=== PATIENT | female | born 1970 | race African-American/Black ===

== ENCOUNTER 2018-12-12 09:56 | Inpatient (IN) | payer OTHER ==
[2018-12-12 10:38] VITALS: BMI 19.3
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
[2018-12-12] MEDS ORDERED: MENTHOL/PHENOL 1 EACH UD MM PRN (13:17)
[2018-12-12] MEDS ORDERED: MAG HYDROX/AL HYDROX/SIMETH 30 ML UNIT-DOSE CUP PO PRN (13:17)
[2018-12-12] MEDS ORDERED: MAGNESIUM CITRATE 300 ML BOTTLE PO PRN (13:17)
[2018-12-12] MEDS ORDERED: hydrOXYzine PAMOATE 50 MG CAPSULE (FP) PO PRN (13:17)
[2018-12-12] MEDS ORDERED: LOPERAMIDE HCL 2 MG CAPSULE PO PRN (13:17)
[2018-12-12] MEDS ORDERED: P-EPHED 60MG/TRIPROLIDI 2.5MG TABLET PO PRN (13:17)
[2018-12-12] MEDS ORDERED: ACETAMINOPHEN 325 MG TABLET (FP) PO PRN (13:17)
[2018-12-12] MEDS ORDERED: MAGNESIUM HYDROX 2400MG/30ML ORAL SUSPENSION 30 ML CUP PO PRN (13:17)
[2018-12-12] MEDS ORDERED: guaiFENesin 200 MG/10 ML 10 ML UNIT-DOSE CUPS PO PRN (13:17)
[2018-12-12 14:52] LABS: HEMATOCRIT 42.7 % (32.4-45.2); HEMOGLOBIN 13.9 GM/dL (10.7-15.3); MCH 32.2 pg (25.7-33.7); MCHC 32.6 g/dl (32.0-36.0); MEAN CELL VOLUME 98.8 fl (80-96); MEAN PLT VOLUME 9.4 fl (7.5-11.1); PLATELET COUNT 219 K/MM3 (134-434); RBC 4.32 M/mm3 (3.60-5.2); RDW 14.3 % (11.6-15.6); WHITE BLOOD COUNT 3.6 K/mm3 (4.0-10.0)
[2018-12-12 15:05] LABS: ALBUMIN 3.8 g/dl (3.4-5.0); BILIRUBIN,TOTAL 0.2 mg/dL (0.2-1); CREATININE 0.8 mg/dL (0.55-1.3); POTASSIUM 4.8 mmol/L (3.5-5.1); TOT PROT 7.4 g/dl (6.4-8.2)
[2018-12-12] MEDS ORDERED: TUBERCULIN PPD 5 TU/0.1ML VIAL ID ONE ×2 (15:18→15:33)
[2018-12-12 19:16] LABS: EPI CELLS 7.5 /HPF (0-5/HPF); HYALINE CASTS 34 /lpf (0-8); PH,URINE 5.5 (5.0-8.0); URINE APPEARANCE CLOUDY; URINE BACTERIA 1045.7 /hpf (NEGATIVE); URINE BILIRUBIN NEGATIVE (NEGATIVE); URINE COLOR YELLOW; URINE GLUCOSE (UA) NEGATIVE (NEGATIVE); URINE KETONE NEGATIVE (NEGATIVE); URINE LEUK ESTERASE 3+ (NEGATIVE); URINE NITRITE NEGATIVE (NEGATIVE); URINE PROTEIN NEGATIVE (NEGATIVE); URINE RBC 2 /hpf (0-4); URINE UROBILINOGEN 0.2 mg/dL (0.2-1.0); URINE WBC 95 /hpf (0-5)
[2018-12-12] MEDS: MELATONIN 5 MG TABLETS PO PRN (21:39)
[2018-12-12] MEDS: THIAMINE HCL 100 MG TABLET (FP) PO SCH (21:39)
[2018-12-12 22:06] LABS: URINE CRYSTALS FEW CALCIUM OXALATES /hpf
[2018-12-13] MEDS: IBUPROFEN 400 MG TABLET (FP) PO PRN (07:17)
[2018-12-13] MEDS: PRENATAL VITAMINS W/ FOLIC ACID TABLET (FP) PO SCH (09:29)
--- NOTE | 2018-12-13 09:29 | PN ---
S Progress Note Note: 48 years old female admitted on 12/12/18 for alcohol rehab long history of hiv treated with truvada and isantress, gerd prefers not to have antiacide medication requests motrin for pain regular dietary ordered ensure placed
[2018-12-13] MEDS ORDERED: cloNIDine HCL 0.1 MG TABLET PO PRN (09:35)
[2018-12-13] MEDS: ENALAPRIL MALEATE 5 MG TABLET (FP) PO SCH (10:00)
[2018-12-13] MEDS: THIAMINE HCL 100 MG TABLET (FP) PO SCH (21:33)
[2018-12-13] MEDS: MELATONIN 5 MG TABLETS PO PRN (21:34)
[2018-12-14] MEDS: IBUPROFEN 400 MG TABLET (FP) PO PRN ×2 (08:02→17:10)
[2018-12-14] MEDS ORDERED: PT OWN MED DRAWER 7, Y5N ONE (08:54)
[2018-12-14] MEDS: PRENATAL VITAMINS W/ FOLIC ACID TABLET (FP) PO SCH (10:09)
[2018-12-14] MEDS: ENALAPRIL MALEATE 5 MG TABLET (FP) PO SCH (10:09)
[2018-12-14] MEDS: THIAMINE HCL 100 MG TABLET (FP) PO SCH (21:34)
[2018-12-15] MEDS: IBUPROFEN 400 MG TABLET (FP) PO PRN (06:37)
[2018-12-15] MEDS ORDERED: PT OWN MED DRAWER 7, Y5N ONE (08:49)
[2018-12-15] MEDS: PRENATAL VITAMINS W/ FOLIC ACID TABLET (FP) PO SCH (10:13)
[2018-12-15] MEDS: ENALAPRIL MALEATE 5 MG TABLET (FP) PO SCH (10:13)
[2018-12-15] MEDS: THIAMINE HCL 100 MG TABLET (FP) PO SCH (21:17)
[2018-12-15] MEDS: MELATONIN 5 MG TABLETS PO PRN (21:18)
[2018-12-16] MEDS: IBUPROFEN 400 MG TABLET (FP) PO PRN (06:32)
[2018-12-16] MEDS: PRENATAL VITAMINS W/ FOLIC ACID TABLET (FP) PO SCH (09:24)
[2018-12-16] MEDS: ENALAPRIL MALEATE 5 MG TABLET (FP) PO SCH (09:24)
[2018-12-16] MEDS: THIAMINE HCL 100 MG TABLET (FP) PO SCH (21:14)
[2018-12-17] MEDS: IBUPROFEN 400 MG TABLET (FP) PO PRN ×2 (10:05→20:02)
[2018-12-17] MEDS: PRENATAL VITAMINS W/ FOLIC ACID TABLET (FP) PO SCH (10:05)
[2018-12-17] MEDS: ENALAPRIL MALEATE 5 MG TABLET (FP) PO SCH (10:57)
[2018-12-17] MEDS: THIAMINE HCL 100 MG TABLET (FP) PO SCH (21:22)
[2018-12-17] MEDS: MELATONIN 5 MG TABLETS PO PRN (21:22)
[2018-12-18] MEDS: IBUPROFEN 400 MG TABLET (FP) PO PRN (09:33)
[2018-12-18] MEDS: ENALAPRIL MALEATE 5 MG TABLET (FP) PO SCH (09:34)
[2018-12-18] MEDS: PRENATAL VITAMINS W/ FOLIC ACID TABLET (FP) PO SCH (09:34)
[2018-12-18] MEDS: THIAMINE HCL 100 MG TABLET (FP) PO SCH (21:34)
[2018-12-18] MEDS: MELATONIN 5 MG TABLETS PO PRN (21:34)
[2018-12-19] MEDS: PRENATAL VITAMINS W/ FOLIC ACID TABLET (FP) PO SCH (10:20)
[2018-12-19] MEDS: ENALAPRIL MALEATE 5 MG TABLET (FP) PO SCH (10:21)
[2018-12-19] MEDS: IBUPROFEN 400 MG TABLET (FP) PO PRN (10:21)
[2018-12-19] MEDS: THIAMINE HCL 100 MG TABLET (FP) PO SCH (21:41)
[2018-12-19] MEDS: MELATONIN 5 MG TABLETS PO PRN (21:42)
[2018-12-20] MEDS: IBUPROFEN 400 MG TABLET (FP) PO PRN (06:56)
[2018-12-20] MEDS: PRENATAL VITAMINS W/ FOLIC ACID TABLET (FP) PO SCH (10:54)
[2018-12-20] MEDS: ENALAPRIL MALEATE 5 MG TABLET (FP) PO SCH (10:54)
[2018-12-20] MEDS: THIAMINE HCL 100 MG TABLET (FP) PO SCH (21:16)
[2018-12-20] MEDS: MELATONIN 5 MG TABLETS PO PRN (21:16)
[2018-12-21] MEDS: IBUPROFEN 400 MG TABLET (FP) PO PRN (07:52)
[2018-12-21] MEDS: PRENATAL VITAMINS W/ FOLIC ACID TABLET (FP) PO SCH (10:06)
[2018-12-21] MEDS: ENALAPRIL MALEATE 5 MG TABLET (FP) PO SCH (10:07)
[2018-12-21] MEDS: MELATONIN 5 MG TABLETS PO PRN (21:08)
[2018-12-21] MEDS: THIAMINE HCL 100 MG TABLET (FP) PO SCH (21:08)
[2018-12-22 07:23] VITALS: TEMP 97.2
[2018-12-22] MEDS: PRENATAL VITAMINS W/ FOLIC ACID TABLET (FP) PO SCH (09:50)
[2018-12-22] MEDS: ENALAPRIL MALEATE 5 MG TABLET (FP) PO SCH (09:51)
[2018-12-22] MEDS: IBUPROFEN 400 MG TABLET (FP) PO PRN (09:51)
[2018-12-22] MEDS: MELATONIN 5 MG TABLETS PO PRN (21:01)
[2018-12-22] MEDS: THIAMINE HCL 100 MG TABLET (FP) PO SCH (21:01)
[2018-12-23] MEDS: PRENATAL VITAMINS W/ FOLIC ACID TABLET (FP) PO SCH (09:10)
[2018-12-23] MEDS: ENALAPRIL MALEATE 5 MG TABLET (FP) PO SCH (09:10)
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
[2018-12-23 11:03] VITALS: BP 128/88; PULSE 86
--- NOTE | 2018-12-23 11:16 | PN ---
[facility] Progress Note (SOAP) Subjective: PT REQUESTED FOR EARLY DISCHARGE PER NURSE IVAN. PT MET WITH COUNSELLING AND HAS BEEN REFERRED TO [facility] FOR CD AFTERCARE. PT REPORTS SHE HAS A PRIMARY CARE WITH DR.SUSAN WOOTEN AT [address] [place] [address]. PT IS ALERT O X 3. DENIES S/H/I. Objective: 12/23/18 11:15 Vital Signs - 24 hr 12/23/18 12/23/18 12/23/18 03:30 07:10 10:00 Temperature 97.2 F L Pulse Rate 56 L 86 Respiratory 18 18 Rate Blood Pressure 138/93 128/88 Laboratory Tests 12/12/18 12/12/18 12/12/18 11:43 13:20 13:20 WBC 3.6 L RBC 4.32 Hgb 13.9 Hct 42.7 MCV 98.8 H MCH 32.2 MCHC 32.6 RDW 14.3 Plt Count 219 MPV 9.4 Sodium 141 Potassium 4.8 Chloride 108 H Carbon Dioxide 30 Anion Gap 3 L BUN 17 Creatinine 0.8 Est GFR (CKD-EPI)AfAm 101.04 Est GFR (CKD-EPI)NonAf 87.18 Random Glucose 119 H Calcium 9.0 Total Bilirubin 0.2 AST 23 ALT 25 Alkaline Phosphatase 85 Total Protein 7.4 Albumin 3.8 Urine Color Urine Appearance Urine pH Ur Specific [place] Urine Protein Urine Glucose (UA) Urine Ketones Urine Blood Urine Nitrite Urine Bilirubin Urine Urobilinogen Ur Leukocyte Esterase Urine WBC (Auto) Urine RBC (Auto) Urine Casts (Auto) U Epithel Cells (Auto) Urine Crystals (Auto) Urine Bacteria (Auto) POC Urine HCG, Qual Negative RPR Titer 12/12/18 12/12/18 13:20 15:30 WBC RBC Hgb Hct MCV MCH MCHC RDW Plt Count MPV Sodium Potassium Chloride Carbon Dioxide Anion Gap BUN Creatinine Est GFR (CKD-EPI)AfAm Est GFR (CKD-EPI)NonAf Random Glucose Calcium Total Bilirubin AST ALT Alkaline Phosphatase Total Protein Albumin Urine Color Yellow Urine Appearance Cloudy Urine pH 5.5 Ur Specific [place] 1.029 Urine Protein Negative Urine Glucose (UA) Negative Urine Ketones Negative Urine Blood Negative Urine Nitrite Negative Urine Bilirubin Negative Urine Urobilinogen 0.2 Ur Leukocyte Esterase 3+ H Urine WBC (Auto) 95 Urine RBC (Auto) 2 Urine Casts (Auto) 34 U Epithel Cells (Auto) 7.5 Urine Crystals (Auto) Few calcium oxalates Urine Bacteria (Auto) 1045.7 POC Urine HCG, Qual RPR Titer Nonreactive Home Medications Medication Instructions Recorded Emtricitabine/Tenofovir [Truvada -] 1 tab PO DAILY 12/23/12 Raltegravir [Isentress] 400 mg PO BID 12/23/12 Enalapril Maleate [Vasotec -] 5 mg PO DAILY 12/13/18 Assessment: 12/23/18 11:15 NAD Plan: FOLLOW UP WITH CD AFTERCARE AND PRIMARY CARE RECOMMENDED.
== END 2018-12-23 10:08 | disposition home or self-care (01) | DRG 772 ==
LOC: YASAS 09:56 → Y3E 13:40
PROVIDERS: ADMIT Neuromusculoskeletal Medicine & OMM; ATTEND Neuromusculoskeletal Medicine & OMM
PROC: HZ42ZZZ Group Counseling for Substance Abuse Treatment, Cognitive-Behavioral (ICD-10-PCS; principal; 2018-12-12)
DX: F10.20 Alcohol dependence, uncomplicated (principal); F14.20 Cocaine dependence, uncomplicated; F12.10 Cannabis abuse, uncomplicated; Z21 Asymptomatic human immunodeficiency virus [HIV] infection status; I10 Essential (primary) hypertension; K21.9 Gastro-esophageal reflux disease without esophagitis; D64.9 Anemia, unspecified
CPT/HCPCS: 36415; 80053; 81003; 81025; 85027; 86593